=== PATIENT | female | born 1990 | race Caucasian/White ===

== ENCOUNTER 2018-06-10 16:20 | Emergency (ER) | payer MEDICAID ==
[~2018-06-10] VITALS: Ht 157.5 cm; Wt 68.2 kg
[~2018-06-10 16:20] MED LIST: KEFLEX500 MG PO; MACROBID100 MG PO; PRENATAL COMPLE1 TAB PO
[2018-06-10 16:33] VITALS: Ht 157.5 cm; Wt 68.2 kg
[2018-06-10 16:50] LABS: COLOR YELLOW (YELLOW)
[2018-06-10 16:51] LABS: APPEARANCE CLEAR (CLEAR); BACTERIA FEW /hpf (NONE SEEN); BILIRUBIN NEGATIVE (NEGATIVE); EPITHELIAL CELLS NSEEN /hpf (0-5); GLUCOSE NEGATIVE (NEGATIVE); KETONE NEGATIVE (NEGATIVE); NITRITE POSITIVE (NEGATIVE); PROTEIN NEGATIVE (NEGATIVE); RED CELLS - URINE NONE SEEN /hpf (0-5); UROBILINOGEN NORMAL (NORMAL); WHITE CELLS - URINE OCC /hpf (0-5)
[2018-06-10 17:34] LABS: BASOPHILS 0.2 % (0-2); EOSINOPHILS 2.3 % (0-7); HEMATOCRIT 38.8 % (36.0-48.0); HEMOGLOBIN 13.3 g/dL (12-16); IMMATURE GRANULOCYTES 0.3 % (0-5); LYMPHOCYTES 21.4 % (15-50); MCH 30.1 pg (26.0-34.0); MCHC 34.3 g/dL (31.0-37.0); MCV 87.8 fL (80.0-100.0); MEAN PLATELET VOLUME 11.5 fL (7.4-10.4); MONOCYTES 5.9 % (2-11); NEUTROPHILS 69.9 % (40-80); PLATELET COUNT 228 10x3/uL (130-400); RBC 4.42 10x6/uL (4.00-5.40); RDW 13.2 % (11.5-14.5); WBC 11.1 10x3/uL (4.8-10.8)
[2018-06-10 17:40] LABS: HCG URINE NEGATIVE (NEGATIVE)
[2018-06-10] MEDS ORDERED: MACROBID100 MG PO (17:55)
[2018-06-10] MEDS ORDERED: KEFLEX500 MG PO (17:55)
[2018-06-10 18:14] VITALS: BP 112/74
== END 2018-06-10 18:15 | disposition home or self-care (01) ==
LOC: D.ER 16:20
PROVIDERS: Family Medicine
DX: N39.0 Urinary tract infection, site not specified (principal)

== ENCOUNTER 2018-06-23 13:07 | Emergency (ER) | payer MEDICAID ==
[~2018-06-23] VITALS: Ht 157.5 cm; Wt 68.2 kg
[2018-06-23 13:09] VITALS: Ht 157.5 cm; Wt 68.2 kg
[2018-06-23] MEDS ORDERED: ULTRAM50 MG PO (14:08)
[2018-06-23 14:32] VITALS: BP 136/74
== END 2018-06-23 14:34 | disposition home or self-care (01) ==
LOC: D.ER 13:07
DX: S92.501A Displaced unspecified fracture of right lesser toe(s), initial encounter for closed fracture (principal); W22.8XXA Striking against or struck by other objects, initial encounter; Y93.89 Activity, other specified; Y92.89 Other specified places as the place of occurrence of the external cause

== ENCOUNTER 2018-08-10 13:50 | Inpatient (IN) | payer MEDICAID ==
[~2018-08-10] VITALS: Ht 157.5 cm; Wt 68.2 kg
[~2018-08-10 13:50] MED LIST changes: +ULTRAM50 MG PO
[2018-08-10 14:42] LABS: BASOPHILS 0.1 % (0-2); EOSINOPHILS 0.2 % (0-7); HEMATOCRIT 41.8 % (36.0-48.0); HEMOGLOBIN 14.6 g/dL (12-16); IMMATURE GRANULOCYTES 0.2 % (0-5); LYMPHOCYTES 11.5 % (15-50); MCH 30.2 pg (26.0-34.0); MCHC 34.9 g/dL (31.0-37.0); MCV 86.4 fL (80.0-100.0); MEAN PLATELET VOLUME 11.8 fL (7.4-10.4); MONOCYTES 3.4 % (2-11); NEUTROPHILS 84.6 % (40-80); PLATELET COUNT 191 10x3/uL (130-400); RBC 4.84 10x6/uL (4.00-5.40); RDW 13.2 % (11.5-14.5); WBC 17.1 10x3/uL (4.8-10.8)
[2018-08-10 15:13] LABS: ALBUMIN 3.6 g/dL (3.4-5.0); ALKALINE PHOSPHATASE 68 U/L (46-116); ALT (SGPT) 20 U/L (10-68); CALC OSMOLALITY 268 mosm/kg (275-300); CALCIUM 9.1 mg/dL (8.5-10.1); CARBON DIOXIDE 26.5 mmol/L (21.0-32.0); CHLORIDE - SERUM 96 mmol/L (98-107); CREATININE - SERUM 0.9 mg/dL (0.6-1.3); PROTEIN - SERUM 8.3 g/dL (6.4-8.2); SODIUM 134 mmol/L (136-145); UREA NITROGEN 6 mg/dL (7-18); eGFR NON AFRICAN AMERICAN 80 mL/min (90-120)
[2018-08-10 15:14] LABS: GLUCOSE 159 mg/dL (74-106)
[2018-08-10 15:16] LABS: AMYLASE - SERUM 31 U/L (25-115); LIPASE 81 U/L (73-393)
[2018-08-10 15:22] LABS: TROPONIN-I < 0.017 ng/mL (0.000-0.060)
[2018-08-10 15:31] LABS: HCG SERUM NEGATIVE (NEGATIVE)
[2018-08-10 15:58] LABS: APPEARANCE HAZY (CLEAR); BILIRUBIN NEGATIVE (NEGATIVE); COLOR YELLOW (YELLOW); GLUCOSE NEGATIVE (NEGATIVE); KETONE MODERATE mg/dL (NEGATIVE); NITRITE POSITIVE (NEGATIVE); PROTEIN 1+ mg/dL (NEGATIVE); SPECIFIC GRAVITY 1.015 (1.005-1.020)
[2018-08-10 15:59] LABS: WHITE CELLS - URINE 25-50 /hpf (0-5)
[2018-08-10 16:00] LABS: BACTERIA MANY /hpf (NONE SEEN); MUCUS <1+ /lpf (NONE SEEN); RED CELLS - URINE 0-5 /hpf (0-5)
[2018-08-10 17:23] VITALS: BP 126/72
[2018-08-10 18:02] VITALS: BP 112/59; Ht 157.5 cm; Wt 68.2 kg
[2018-08-10 20:00] VITALS: BP 96/58
--- NOTE | 2018-08-10 20:00 | NUR ---
ALERT RESTIGN IN BED, DENIES N/V, REPORTS PAIN BETTER AT THIS TIME, SEE SHIFT ASSESSMENT CALL LIGHT IN REACH
[2018-08-11] VITALS: BP 93/46
[2018-08-11 04:00] VITALS: BP 102/49
[2018-08-11 06:50] LABS: ALBUMIN 2.7 g/dL (3.4-5.0); ALKALINE PHOSPHATASE 53 U/L (46-116); ALT (SGPT) 19 U/L (10-68); BILIRUBIN - TOTAL 1.27 mg/dL (0.2-1.3); CALCIUM 8.3 mg/dL (8.5-10.1); CARBON DIOXIDE 24.4 mmol/L (21.0-32.0); CHLORIDE - SERUM 102 mmol/L (98-107); PROTEIN - SERUM 6.7 g/dL (6.4-8.2); SODIUM 137 mmol/L (136-145); UREA NITROGEN 5 mg/dL (7-18)
[2018-08-11 06:54] LABS: CALC OSMOLALITY 270 mosm/kg (275-300); CREATININE - SERUM 0.6 mg/dL (0.6-1.3); GLUCOSE 102 mg/dL (74-106); POTASSIUM - SERUM 3.6 mmol/L (3.5-5.1); eGFR NON AFRICAN AMERICAN > 90 mL/min (90-120)
[2018-08-11 07:15] LABS: BASOPHILS 0.2 % (0-2); EOSINOPHILS 1.4 % (0-7); HEMATOCRIT 34.5 % (36.0-48.0); IMMATURE GRANULOCYTES 0.3 % (0-5); LYMPHOCYTES 12.8 % (15-50); MCH 29.7 pg (26.0-34.0); MCHC 34.8 g/dL (31.0-37.0); MCV 85.4 fL (80.0-100.0); MEAN PLATELET VOLUME 12.1 fL (7.4-10.4); MONOCYTES 9.7 % (2-11); NEUTROPHILS 75.6 % (40-80); PLATELET COUNT 182 10x3/uL (130-400); RBC 4.04 10x6/uL (4.00-5.40); RDW 13.1 % (11.5-14.5)
[2018-08-11 07:22] LABS: WBC 11.4 10x3/uL (4.8-10.8)
[2018-08-11 08:29] VITALS: BP 115/72
[2018-08-11 13:32] VITALS: BP 102/46
[2018-08-11 18:19] VITALS: BP 101/59
--- NOTE | 2018-08-11 19:15 | NUR ---
RECIEVED CARE FROM DAY NURSE. LYING IN BED WATCHING TV. REPORTS NO NEEDS AT THIS TIME. CALL LIGHT AT SIDE. IV INFUSING PER ORDER TO LEFT HAND.
[2018-08-11 21:13] VITALS: BP 113/74
--- NOTE | 2018-08-12 03:00 | NUR ---
I have reviewed this patient and I concur with the Shift Assessment completed by the Licensed Practical Nurse today this shift.
[2018-08-12 05:10] VITALS: BP 120/60
[2018-08-12 07:05] LABS: BASOPHILS 0.1 % (0-2); EOSINOPHILS 3.7 % (0-7); HEMATOCRIT 33.7 % (36.0-48.0); HEMOGLOBIN 11.5 g/dL (12-16); IMMATURE GRANULOCYTES 0.1 % (0-5); MCH 29.1 pg (26.0-34.0); MCHC 34.1 g/dL (31.0-37.0); MCV 85.3 fL (80.0-100.0); MEAN PLATELET VOLUME 11.7 fL (7.4-10.4); MONOCYTES 9.7 % (2-11); NEUTROPHILS 57.4 % (40-80); PLATELET COUNT 185 10x3/uL (130-400); RBC 3.95 10x6/uL (4.00-5.40)
[2018-08-12 07:24] LABS: ALBUMIN 2.4 g/dL (3.4-5.0); ALKALINE PHOSPHATASE 50 U/L (46-116); ALT (SGPT) 27 U/L (10-68); BILIRUBIN - TOTAL 0.51 mg/dL (0.2-1.3); CALC OSMOLALITY 274 mosm/kg (275-300); CALCIUM 8.2 mg/dL (8.5-10.1); CARBON DIOXIDE 24.5 mmol/L (21.0-32.0); CHLORIDE - SERUM 106 mmol/L (98-107); CREATININE - SERUM 0.5 mg/dL (0.6-1.3); GLUCOSE 95 mg/dL (74-106); MAGNESIUM - SERUM 1.8 mg/dL (1.8-2.4); POTASSIUM - SERUM 3.3 mmol/L (3.5-5.1); PROTEIN - SERUM 6.2 g/dL (6.4-8.2); SODIUM 140 mmol/L (136-145); UREA NITROGEN 2 mg/dL (7-18); eGFR NON AFRICAN AMERICAN > 90 mL/min (90-120)
[2018-08-12 08:45] VITALS: BP 109/59
[2018-08-12 12:41] VITALS: BP 109/51
[2018-08-12] MEDS ORDERED: OMNICEF300 MG PO (16:47)
--- NOTE | 2018-08-12 17:16 | NUR ---
RX FOR OMNICEF CALLED TO [facility] [address], [facility] ALREAD[facility] CLOS[facility] FOR DAY. SPOKE WITH TIFFANIE, PHARMACIST.
== END 2018-08-12 18:34 | disposition home or self-care (01) | DRG 690 ==
LOC: D.ER 13:50 → D.MS 16:59
PROVIDERS: Family Medicine; ADMIT Internal Medicine Nephrology; ATTEND Internal Medicine Nephrology
DX: N10 Acute pyelonephritis (principal); E87.1 Hypo-osmolality and hyponatremia; E87.6 Hypokalemia; R73.9 Hyperglycemia, unspecified; E80.6 Other disorders of bilirubin metabolism